=== PATIENT | female | born 1970 | race Caucasian/White ===

== ENCOUNTER 2017-09-10 14:19 | Emergency (ER) | payer MEDICARE, OTHER ==
[~2017-09-10] VITALS: Ht 170.2 cm; Wt 58.0 kg
[2017-09-10] MEDS ORDERED: dexamethasone 4mg tablet PO ONE (14:45)
[2017-09-10] MEDS ORDERED: ipratropium/albuterol 3ml nebule NEB ONE (14:45)
[2017-09-10] MEDS ORDERED: ALB0.5UD IH (15:40)
[2017-09-10 16:18] VITALS: BP 138/98
== END 2017-09-10 16:20 | disposition home or self-care (01) ==
LOC: ER 14:19
DX: J45.901 Unspecified asthma with (acute) exacerbation (principal); F12.10 Cannabis abuse, uncomplicated; G43.909 Migraine, unspecified, not intractable, without status migrainosus; Z87.891 Personal history of nicotine dependence; Z88.2 Allergy status to sulfonamides
CPT/HCPCS: 71046; 94640; 94760; 99284; J8540

== ENCOUNTER 2018-02-11 18:31 | Emergency (ER) | payer MEDICARE, OTHER ==
[~2018-02-11] VITALS: Ht 172.7 cm; Wt 59.0 kg
[2018-02-11] MEDS ORDERED: LORazepam 1 MG tablet PO ONE (21:40)
[2018-02-11 22:05] LABS: BASOPHILS % (AUTO) 0.2 % (0-1); EOSINOPHILS # (AUTO) 0.1 X10'3 (0-0.9); HEMATOCRIT 32.4 % (35.0-45.0); HEMOGLOBIN 10.8 g/dl (12.0-16.0); LYMPHOCYTES % (AUTO) 27.4 % (21-51); MEAN CORPUSCULAR HEMOGLOBIN 32.5 PG (27.0-31.0); MEAN CORPUSCULAR HGB CONC 33.5 % (33.0-36.5); MEAN PLATELET VOLUME 8.1 FL (7.4-10.4); MONOCYTES # (AUTO) 0.7 X10'3 (0-0.9); MONOCYTES % (AUTO) 9.6 % (2-12); NEUTROPHILS # (AUTO) 4.5 X10'3 (1.8-7.7); NEUTROPHILS % (AUTO) 61.8 % (42-75); PLATELET COUNT 227 X10'3 (140-440); RED BLOOD COUNT 3.34 X10'6 (4.20-5.60); RED CELL DISTRIBUTION WIDTH 14.4 % (11.5-14.5); WHITE BLOOD COUNT 7.3 X10'3 (4.5-11.0)
[2018-02-11 22:19] LABS: ALANINE AMINOTRANSFERASE 51 U/L (12-78); ALBUMIN 3.4 G/DL (3.4-5.0); ALKALINE PHOSPHATASE 88 IU/L (46-116); ANION GAP 9 (8-16); ASPARTATE AMINO TRANSFERASE 37 U/L (10-37); BILIRUBIN,TOTAL 0.3 MG/DL (0.1-1.0); BLOOD UREA NITROGEN 8 MG/DL (7-18); BUN/CREATININE RATIO 11.4 (6.6-38.0); CALCIUM 8.9 MG/DL (8.5-10.1); CHLORIDE 105 MMOL/L (99-107); GLUCOSE 109 MG/DL (70-104); POTASSIUM 3.4 MMOL/L (3.5-5.1); SODIUM 142 MMOL/L (135-145); TOTAL PROTEIN 6.7 G/DL (6.4-8.2); eGFR 89 ML/MIN
[2018-02-11] MEDS ORDERED: LORA1TAB PO (23:28)
[2018-02-11 23:40] VITALS: BP 140/76
== END 2018-02-11 23:45 | disposition home or self-care (01) ==
LOC: ER 18:32
DX: S06.0X0A Concussion without loss of consciousness, initial encounter (principal); S09.8XXA Other specified injuries of head, initial encounter; I10 Essential (primary) hypertension; J45.909 Unspecified asthma, uncomplicated; G43.909 Migraine, unspecified, not intractable, without status migrainosus; F17.200 Nicotine dependence, unspecified, uncomplicated; F12.90 Cannabis use, unspecified, uncomplicated; Z88.2 Allergy status to sulfonamides; Z88.8 Allergy status to other drugs, medicaments and biological substances; Z79.899 Other long term (current) drug therapy; W18.39XA Other fall on same level, initial encounter; Y93.89 Activity, other specified; Y92.89 Other specified places as the place of occurrence of the external cause; Y99.8 Other external cause status
CPT/HCPCS: 36415; 70450; 80053; 82948; 85025; 99285

== ENCOUNTER 2020-07-21 13:57 | Emergency (ER) | payer MEDICARE, OTHER ==
[~2020-07-21] VITALS: Ht 154.9 cm; Wt 54.5 kg
[~2020-07-21 13:57] MED LIST: LORazepam 2 mg/ml vial ONE
[2020-07-21] MEDS ORDERED: etomidate 2mg/ml inj. ONE (14:00)
[2020-07-21] MEDS ORDERED: rocuronium 10mg/ml inj IV ONE (14:00)
--- NOTE | 2020-07-21 14:00 | NUR ---
Dayana Kay Hollee running code.
[2020-07-21] MEDS ORDERED: midazolam 100mg in NS 100ml 100 ML IV PRN (14:15)
[2020-07-21] MEDS ORDERED: diltiazem 5mg/ml 5ml inj. IV ONE (14:15)
[2020-07-21] MEDS ORDERED: FENTANYL-0.9 % NACL/PF 100 ML IV PRN (14:15)
--- NOTE | 2020-07-21 14:19 | NUR ---
1359 ATIVAN 2 MG GIVEN IV. I-GEL IN PLACE PER EMS WITH BVM IN PROGRESS.
[2020-07-21 14:27] LABS: ABG HCO3 19.5 mmol/L (22.0-26.0); ABG OXYGEN SATURATION 98.1 % (94-97); ABG PCO2 (T) 30.9 mmHg (32.0-45.0); ABG PO2 (T) 116.9 mmHg (75.0-100.0); ALLEN'S TEST POSITIVE; FCOHb 0.4 % (0.0-3.9); FMetHb 0.1 % (0.0-1.5); FO2Hb 97.6 % (94-97); PEEP 5 cm H2O; RESPIRATORY RATE 18 b/min; TIDAL VOLUME 492 mL; TOTAL HEMOGLOBIN 12.5 G/dl (12.0-16.0)
[2020-07-21 14:39] LABS: BASOPHILS # (AUTO) 0.1 X10'3 (0-0.2); BASOPHILS % (AUTO) 0.5 % (0-1); EOSINOPHILS % (AUTO) 0.1 % (0-6); HEMATOCRIT 35.8 % (35.0-45.0); LYMPHOCYTES # (AUTO) 2.8 X10'3 (1.1-4.8); LYMPHOCYTES % (AUTO) 14.5 % (21-51); MEAN CORPUSCULAR HEMOGLOBIN 31.2 PG (27.0-31.0); MEAN CORPUSCULAR HGB CONC 33.6 g/dL (33.0-36.5); MEAN CORPUSCULAR VOLUME 92.8 FL (78-98); MEAN PLATELET VOLUME 7.6 FL (7.4-10.4); MONOCYTES # (AUTO) 1.8 X10'3 (0-0.9); MONOCYTES % (AUTO) 9.3 % (2-12); NEUTROPHILS # (AUTO) 14.4 X10'3 (1.8-7.7); NEUTROPHILS % (AUTO) 75.6 % (42-75); PLATELET COUNT 310 X10'3 (140-440); RED BLOOD COUNT 3.85 X10'6 (4.20-5.60); RED CELL DISTRIBUTION WIDTH 14.1 % (11.5-14.5); WHITE BLOOD COUNT 19.1 X10'3 (4.5-11.0)
--- NOTE | 2020-07-21 14:49 | NUR ---
TO CT WITH ANN SANDERSON AND RT, ON MONITOR
[2020-07-21 14:53] LABS: LACTIC SEPSIS 3.5 MMOL/L (0.4-2.0)
[2020-07-21 14:58] LABS: ACETAMINOPHEN 2.3 UG/ML (10-30); ALANINE AMINOTRANSFERASE 15 U/L (12-78); ALBUMIN 3.4 G/DL (3.4-5.0); ALBUMIN/GLOBULIN RATIO 0.8 (1.1-1.5); ALKALINE PHOSPHATASE 72 IU/L (46-116); ANION GAP 12 (8-16); ASPARTATE AMINO TRANSFERASE 20 U/L (10-37); BILIRUBIN,TOTAL 0.3 MG/DL (0.1-1.0); BLOOD UREA NITROGEN 14 MG/DL (7-18); BUN/CREATININE RATIO 15.4 (6.6-38.0); CALCIUM 8.7 MG/DL (8.5-10.1); CHLORIDE 101 MMOL/L (99-107); CREATININE 0.91 MG/DL (0.40-0.90); ETHANOL < 0.010 GM/DL (0.0-0.010); GLUCOSE 214 MG/DL (70-104); MAGNESIUM 1.5 MG/DL (1.5-2.4); SODIUM 136 MMOL/L (135-145); TOTAL CARBON DIOXIDE 23.1 MMOL/L (24-32); TOTAL PROTEIN 7.8 G/DL (6.4-8.2); VALPROATE 38 UG/ML (50-100); eGFR 65 ML/MIN
[2020-07-21 15:05] LABS: CLARITY,URINE CLEAR (Clear); COLOR,URINE YELLOW (Yellow); GLUCOSE, URINE 100 mg/dl (Neg); KETONES,URINE 15 mg/dl (Neg); LEUKOCYTE ESTERASE ,URINE NEGATIVE (Neg); NITRITES, URINE NEGATIVE (Neg); OCCULT BLOOD,URINE TRACE-INTACT (Neg); PH,URINE 6.5 (4.8-8.0); PROTEIN,URINE 100 mg/dl (Neg); UROBILINOGEN,URINE 0.2 E.U/dL (0.2-1.0)
[2020-07-21] MEDS ORDERED: niCARDipine-NS 40mg/200ml IVPB 200 ML IV SCH ×2 (15:05→15:10)
[2020-07-21 15:10] LABS: URINE AMPHETAMINE SCREEN NEGATIVE (Neg); URINE BARBITUATE SCREEN NEGATIVE (Neg); URINE BENZODIAZEPINES SCREEN NEGATIVE (Neg); URINE CANNABINOID SCREEN NEGATIVE (Neg); URINE COCAINE SCREEN NEGATIVE (Neg); URINE METHADONE SCREEN NEGATIVE (Neg); URINE OPIATE SCREEN NEGATIVE (Neg); URINE PHENCYCLIDINE SCREEN NEGATIVE (Neg)
--- NOTE | 2020-07-21 15:12 | NUR ---
BACK TO ED ROOM 6, PA AWARE OF BLEED, PA AWARE OF TACHYCARDIA AND HYPERTENSION. PT'S HR HAD DROPPED TO 120'S AFTER DILTIAZEM, NOW BACK TO 140'S. FENT GTT INCREASED TO 50 MCG, AND VERSED GTT INCREASED TO 2 MG. 15 MCG BOLUS OF FENTANYL GIVEN .
[2020-07-21 15:14] LABS: UA COLLECTION TYPE STRAIGHT CATH
[2020-07-21] MEDS ORDERED: levetiracetam-NS 1000mg/100ml 100 ML IV ONE (15:15)
--- NOTE | 2020-07-21 15:18 | NUR ---
HOB 30
[2020-07-21 15:21] LABS: POTASSIUM 2.8 MMOL/L (3.5-5.1)
--- NOTE | 2020-07-21 15:21 | NUR ---
DR SNELL AT BEDSIDE AWARE OF LABILE BP, TURNED FENTANYL TO 35 MCG PER MD.
[2020-07-21 15:29] LABS: PARTIAL THROMBOPLASTIN TIME 24 SECONDS (22-32)
[2020-07-21] MEDS ORDERED: potassium Cl 10 mEq/100mL bag IV ONE (15:35)
[2020-07-21 15:38] LABS: BACTERIA,URINE FEW /HPF (Neg); SQUAMOUS EPITHELIAL CELL,UR FEW /LPF (FEW)
[2020-07-21 15:40] LABS: RBC,URINE 0-2 /HPF (0-2); WBC,URINE 0-4 /HPF (0-4)
[2020-07-21 16:00] VITALS: BP 145/85
--- NOTE | 2020-07-21 16:57 | NUR ---
Late entry for 3532-2548: [facility] at bedside for transport, this RN accompanied pt to [facility] to provide critical care. Pt with two consecutive BP's over 140, Nicardipine drip started at 1545, 5 mg/hr. See VS flowsheet for transport vitals. Transport with no difficulties, no change in pt condition. Report given to Salina JUAREZ's and Kelvin Hayward MD, transfer of care at 1602.
[2020-07-21] MEDS ORDERED: levetiracetam-NS 1000mg/100ml 100 ML IV SCH (20:00)
== END 2020-07-21 15:45 | disposition short-term general hospital (02) ==
LOC: ER 13:57
DX: R41.82 Altered mental status, unspecified (principal); Z20.822 Contact with and (suspected) exposure to COVID-19; G43.909 Migraine, unspecified, not intractable, without status migrainosus; I10 Essential (primary) hypertension; J45.909 Unspecified asthma, uncomplicated; F12.90 Cannabis use, unspecified, uncomplicated; Z88.2 Allergy status to sulfonamides; Z88.8 Allergy status to other drugs, medicaments and biological substances; Z98.890 Other specified postprocedural states
CPT/HCPCS: 31500; 36415; 36600; 70450; 71045; 72125; 80053; 80164; 80305; 80320; 80329; 81001; 82140; 82803; 83605; 83735; 84145; 84443; 85018; 85025; 85610; 85730; 87070; 87426; 93005; 94799; 96374; 96375; 99291; J1953; J2060; 94760; 96365; 96367; 96368; J3010; J3490